=== PATIENT | female | born 1975 | race Caucasian/White ===

== ENCOUNTER 2020-08-07 08:01 | Day surgery (SDC) | payer OTHER ==
[2020-08-06 09:26] LABS: Absolute Lymphocytes (CBC) 3.7 K/uL (0.7-4.9); Basophils % 0.8 % (0-1.3); Hematocrit 38.2 % (36.0-45.0); Lymphocytes % 47.1 % (15.3-44.8); MPV 8.2 fL (7.6-11.3); RBC Red Blood Cell Count 4.66 M/uL (3.86-4.86)
--- NOTE | 2020-08-06 09:28 | RAD REPORT ---
EXAM DESCRIPTION: Gibson Pa And Lat (2 Views)08/06/2020 9:14 am CLINICAL HISTORY: Preop COMPARISON: None FINDINGS: 9 millimeter nodular opacity overlies the mid to lower left lung. The remainder of the lungs appear clear of acute infiltrate. The heart is normal size IMPRESSION: 9 millimeter nodular opacity overlies the mid to lower left lung may represent nipple sh adow or pulmonary nodule. Frontal and oblique views of chest with a left nipple marker are recommende d for further evaluation
[2020-08-06 09:39] LABS: Potassium 4.8 mmol/L (3.5-5.1)
[2020-08-06 13:51] LABS: Blood Morphology Comment NOT SEEN (NOT SEEN); Platelet Estimate ADEQ
[2020-08-07] MEDS ORDERED: Ringers Lactate 1,000 ML IV ONE (08:34)
[2020-08-07] MEDS: CEFOXITIN/SWI 1gm 1 GM/10 ML SYR ONE ×2 (08:57→08:58)
[2020-08-07] MEDS ORDERED: dexAMETHasone 10 MG/ML VIAL ONE (09:28)
[2020-08-07] MEDS ORDERED: FENTANYL CITR 100 MCG/2 ML ONE (09:28)
[2020-08-07] MEDS ORDERED: KETOROLAC 30 MG/ML INJ ONE (09:28)
[2020-08-07] MEDS ORDERED: propofoL 200 MG/20 ML VIAL IV ONE (09:28)
[2020-08-07] MEDS ORDERED: LIDOCAINE 2% MPF 5 ML VIAL ONE (09:28)
[2020-08-07] MEDS ORDERED: MIDAZOLAM HCL 2 MG/2 ML INJ ONE (09:28)
[2020-08-07] MEDS ORDERED: KETAMINE HCL 500 MG/5 ML VIAL ONE (09:28)
[2020-08-07] MEDS ORDERED: ONDANSETRON 4 MG/2 ML VIAL ONE (09:48)
[2020-08-07 10:23] VITALS: BP 107/69; O2SAT 99
[2020-08-07 11:14] VITALS: TEMP 97.2
--- NOTE | 2020-08-07 11:41 | OP ---
Date of Procedure: 08/07/2020 Surgeon: Reinier Yanes MD Overhead Irrigator: None. Preoperative Diagnosis: Anal mass. Postoperative Diagnosis: Anal mass. Procedures: Exam under anesthesia, rigid proctoscopy, and transanal excision of the anal mass. Estimated Blood Loss: Minimal. Specimen: Anal mass. 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 Anesthesia: General. Complications: None. Disposition: The patient tolerated the procedure in stable condition and taken to Recovery in good g eneral condition. Procedure In Detail: The patient was brought to the OR and placed in supine position. General anest hesia begun. The patient was prepped and draped in the lithotomy position. Exam under anesthesia an d rigid proctoscopy revealed a 1 cm raised mass the mucosa of the anus near the dentate li ne on the left side approximately 3 o'clock. This was grasped and excised through the mucosa from th e negative margins and sent to Pathology. There was no bleeding noted. The area was injected with M arcaine 0.5% in the rectal pack consisting of Gelfoam, Surgicel and Vaseline gauze was placed. Steri le dressing was applied. The patient was awakened and taken to Recovery in good general condition. Discharge Note: The patient will go to Day Surgery and home when stable. Disposition: Home. Condition: Stable. Discharge Instructions: Resume home medications and diet. Activity as tolerated. No heavy lifting. Sitz baths b.i.d. Procto-HC 2.5% to anus b.i.d. Followup in my office in 2 weeks. Call for appoi ntment. Tylenol No.3 one tablet p.o. q.4 p.r.n. pain. /MODL Voice ID: [id number] Report ID: [id number]
--- NOTE | 2020-08-07 16:32 | EKG ---
Test Date: 2020-08-06 Test Time: 07:57:23 Cleaning Crew Member: DANIEL MEASUREMENT RESULTS: Intervals: Rate: 56 CO: 144 QRSD: 88 QT: 422 QTc: 407 Morrow: P: 38 CO: 144 QRS: 76 T: 64 INTERPRETIVE STATEMENTS: Sinus bradycardia Otherwise normal ECG Compared to ECG 09/12/2002 01:26:00 Sinus rhythm no longer present Electronically Signed On 08-07-20 16:29:59 CDT by Lucas Gonzalez
== END 2020-08-07 11:08 | disposition home or self-care (01) ==
LOC: OR 08:01
PROVIDERS: ATTEND Surgery
PROC: 0D5P8ZZ Destruction of Rectum, Via Natural or Artificial Opening Endoscopic (ICD-10-PCS; principal; 2020-08-07 09:00)
DX: A63.0 Anogenital (venereal) warts (principal); Z20.822 Contact with and (suspected) exposure to COVID-19
CPT/HCPCS: 45320; 93005; 85025; 80048; 36415; 88305; 71046; U0003; J2704; J2250; J3010; J1100; J7120; J2405

== ENCOUNTER 2021-03-26 17:31 | Emergency (ER) | payer OTHER ==
--- OUTSIDE RECORDS SUMMARY | 2021-03-26 17:34 | XMS REPORT | Continuity of Care Document ---
:1975 Author Organization [facility] t Address [address] [place] [address] Care Team Providers Name Role Phone Samanthaolinda Attending Clinician Unavailable RADIOLOGY Attending Clinician Unavailable Florencia Sanchez Attending Clinician Sharla Vicente DO Attending Clinician Lab, Fam Pob I Attending Clinician Unavailable Maura LEDESMA Attending Clinician MAURA Attending Clinician Unavailable Payers Payer Name Policy Type Policy Number Effective Date Expiration Date S ourkey [employer] CHOICE POS [id number] 2018 00:00:00 II Problems Condition Condition Condition Status Onset Resolution Last Treating Co mments Source Name Details Category Date Date Treatment Clinician Date No known No known Disease Unive rs active active ity of problems problems [facility] Allergies, Adverse Reactions, Alerts Allergy Allergy Status Severity Reaction(s) Onset Inactive Treating Comm ents Source Name Type Date Date Clinician NO KNOWN Drug Active Univers ALLERGIE Class ity of [facility] Social History Social Habit Start Date Stop Date Quantity Comments Source Sex Assigned At Uni [facility] Exposure to SARS-CoV-[address] [facility] Smoking Status Start Date Stop Date Source Unknown if ever smoked Universit y [facility] Medications Ordered Filled Start Stop Current Ordering Indication Dosage Frequency Signature Comments Components Source Medication Medication Date Date Medication? Clinician (SIG) Name Name diphenhydrA 2020- No 25mg 25 mg, Uni vers MINE 02-21 Slow IV ity of (BENADRYL) 21:30: 20:25 Push, [place] injection 00 :00 ONCE, 1 Medical 25 mg dose, [place] [facility] 02/22/20 at 1530, STAT iohexol 2020- No 120mL 120 mL, Unive rs (OMNIPAQUE 02-21 Intravenou it y of 350 20:15: 20:30 s, ONCE, 1 [place] BULK-150 00 :00 dose, [facility] Med[facility] l mL) 02/22/20 at Branch injection 1430, 120 mL Routine methylpredn 2020- No 125mg 125 mg, U nivers isolone sod 02-21 Slow IV ity of succ 19:30: 19:00 Push, [place] (SOLU-MEDRO 00 :00 ONCE, 1 Medic al L) dose, [place] [facility] injection 02/22/20 at 125 mg 1330, STAT NaCl 0.9% 2020- No 1000mL at 999 Uni vers (NS) bolus 02-21 mL/hr, ity of infusion 19:30: 20:00 1,000 mL, [place] 1,000 mL 00 :00 IV Medical Infusion, Branch ONCE, 1 dose, [facility] 02/22/20 at 1330, STAT famotidine 2020- No 20mg 20 mg, IV U nivers 20 mg in NS 02-21 Piggyback, i ty of 50 ml 19:30: 19:31 ONCE, 1 [place] (PEPCID) 20 00 :00 dose, [facility] Med ical mg/50 mL 02/22/20 at Branch Piggyback 1330, 50 20 mg mL diphenhydrA 2020- No 25mg 25 mg, Uni vers MINE 02-21 Slow IV ity of (BENADRYL) 19:30: 19:02 Push, [place] injection 00 :00 ONCE, 1 Medical 25 mg dose, [place] [facility] 02/22/20 at 1330, STAT famotidine 0 Yes [id number] 40mg Take 1 Univers (PEPCID) 40 02-21 tablet by ity of mg tablet 00:00: mouth [place] 00 daily. Medical Branch ibuprofen Yes [id number] 600mg Take 1 U nivers 600 mg - tablet by ity of tablet 00:00: mouth [place] 00 every 6 Medical (six) Branch hours as needed for Pain (scale 4-6). methylPREDN Yes [id number] Take by Univers ISolone 1-07 mouth ity of (MEDROL, 00:00: SEE-INSTRU [place] as LATOSHA,) 4 mg 00 CTIONS. Medica l tablets follow [facility] package directions ondansetron Yes [id number] 4mg Take 1 Univers (ZOFRAN 1-07 tablet by ity of ODT) 4 mg 00:00: mouth [place] disintegrat 00 every 8 Medic al ing tablet (eight) Branch hours as needed for Nausea and Vomiting (N/V). dicyclomine No 10mg 10 mg, Uni vers (BENTYL) 02-17 Oral, ity of capsule 10 03:00: 02:08 ONCE, 1 [place] mg 00 :00 dose, Sat Medical 02/17/20 at Branch 2100, Routine NaCl 0.9% No 1000mL at 999 Uni vers (NS) bolus 02-1703 mL/hr, ity of infusion 01:30: 03:30 1,000 mL, [place] 1,000 mL 00 :00 IV Medical Infusion, [facility] ONCE, 1 dose, 02/17/20 at 1930, SURYA dicyclomine Yes [id number] 10mg Take 1 Univers (BENTYL) 10 1-02 capsule by it y of mg capsule 00:00: mouth [place] 00 every 6 Medical (six) Branch hours as needed for Abdominal pain. dicyclomine Yes [id number] 10mg Take 1 Univers (BENTYL) 10 1-02 capsule by it y of mg capsule 00:00: mouth [place] 00 every 6 Medical (six) Branch hours as needed for Abdominal pain. Vital Signs Vital Name Observation Time Observation Value Comments Source Systolic blood 2020-02-22 22:00:00 103 mm[Hg] Univer sity of pressure [facility] Diastolic blood 2020-02-22 22:00:00 76 mm[facility]Hg[facility] Heart rate 2020-02-22 22:00:00 86 /min [facility] Respiratory rate 2020-02-22 22:00:00 20 /min [facility] saturation in 2020-02-22 22:00:00 97 /min [facility] Arterial blood by [facility] Pulse oximetry [facility] Body temperature 2020-02-22 17:21:00 37.44 Saida [facility] Body weight 2020-02-22 17:21:00 61.236 kg [facility] BMI 2020-02-22 17:21:00 21.14 kg/m2 [facility] Systolic blood 2020-02-18 03:30:00 101 mm[Hg] Univer sity of pressure [facility] Diastolic blood 2020-02-18 03:30:00 76 mm[facility]Hg[facility] 2020-02-18 03:30:00 75 /min [facility] Respiratory rate 2020-02-18 03:30:00 16 /min [facility] Oxygen saturation in 2020-02-18 03:30:00 99 /min [facility] Arterial blood by [facility] Pulse oximetry [facility] Body temperature 2020-02-18 01:21:00 37.17 Saida [facility] Body height 2020-02-18 01:21:00 170.2 cm [facility] Body weight 2020-02-18 01:21:00 61.236 kg [facility] BMI 2020-02-18 01:21:00 21.14 kg/m2 [facility] Procedures Procedure Date / Time Performed Performing Clinician Jaja e CT ABDOMEN PELVIS W 2020-02-22 20:14:48 Gokul Zuluaga [facility] CONTRAST [facility] LIPASE 2020-02-22 18:54:00 Gokul Zuluaga [facility] MAGNESIUM 2020-02-22 18:54:00 Gokul Zuluaga [facility] COMP. METABOLIC PANEL 2020-02-22 18:54:00 Gokul Zuluaga [facility] ([id number]) [facility] CBC WITH DIFF 2020-02-22 18:54:00 Gokul Zuluaga [facility] NOTICE OF PRIVACY 2020-02-22 17:02:41 Doctor Unassigned, No [facility] Name Medical Branch CONSENT/REFUSAL FOR 2020-02-22 17:02:25 Doctor Unassigned, No [facility] DIAGNOSIS AND Name Medical Branch TREATMENT LIPASE 2020-02-18 02:05:00 Shiela Vicente [facility] HEPATIC FUNCTION PANEL 2020-02-18 02:05:[address] [facility] ([id number] Medical [facility] (ALB,T.PRO,BILI T,BU/BC,ALT,AST,ALK PHOS) BASIC METABOLIC PANEL 2020-02-18 02:05:00 Shiela Vicente Uni versity of [place] (NA, K, CL, CO2, Medical Branch GLUCOSE, BUN, CREATININE, CA) CBC WITH DIFF 2020-02-18 02:05:00 Shiela Vicente [facility] URINALYSIS 2020-02-18 02:05:00 Shiela Vicente [facility] NOTICE OF PRIVACY 2020-02-18 01:11:14 Doctor Unassigned, No Univ [facility] PRACTICES Name [facility] CONSENT/REFUSAL FOR 2020-02-18 01:10:52 Doctor Unassigned, No [facility] DIAGNOSIS AND Name Medical Branch TREATMENT Encounters Start End Encounter Admission Attending Care Care Encounter Source Date/Time Date/Time Type Type Clinicians Facility Department ID 2020-12-14 Emergency [facility] [id number] Univers 15:42:18 ity [facility] [place] [facility] 2020-12-14 Emergency [facility] [id number] Univers [facility] 2020-02-27 2020-02-27 Outpatient R RADIOLOGY [facility] [id number] Univers 09:00:00 09:00:00 [id number] ity [facility] [place] [facility] 2020-02-27 2020-02-27 Outpatient R RADIOLOGY [facility] [id number] Univers 00:00:00 00:00:00 ity [facility] [place] [facility] 2020-02-22 2020-02-22 Emergency Gokul Zuluaga [facility] [id number] Univers 11:28:00 16:24:00 Florencia Delgado [id number] i ty of [place] [id number] [facility] [id number] [facility] 084 Branch 2020-02-17 2020-02-17 Emergency [facility] [id number] Univers 19:35:00 21:37:00 Shiela Delgado [id number] [facility] [id number] [id number] [facility] 084 Branch 2020-02-17 2020-02-17 Laboratory Lab, Adc Fam Pob I [facility] 1.2. [id number] Univers 18:51:30 19:11:30 Only Yin Faith [facility] [id number] [facility] [place] [id number] [place] [facility] [phone] Vt dical nal [address] Branch [address] 2020-02-17 2020-02-17 Outpatient R MAURA [facility] [id number] Univers 19:00:00 19:00:00 [facility] Results Test Test Test Results Result Source Description Time Comments Comments MRI ABDOMEN 2020-06 WO/W -15 11:56:[facility] : 1975 Sex: F *CLINICAL INDICATION: R19.4Change in bowel gcqnpL66.4Abnormal weight lossR10.84Generalized abdominal pain MODALITY: ConsortiEX 3T MRITECHNIQUE: Parallel imaging is accomplished using T2, diffusion, in-phase, dop-fu-vpdvj, and breath-holding sequences. IV contrast (Dotarem), 14.0 ml is administered. Dynamic post-contrast fat saturation breath-hold imaging is then performed. The patient returned on 07/05/2020 for additional dynamic images (difficult to stick).IMPRESSION:Unremarkable MR enterography study. Specifically no evidence of active inflammatory bowel disease.Hysterectomy.FINDINGS: COMPARISON: noneLung bases are clear. No pleural fluid is seen.The liver appears homogeneous. Vertical diameter measures 14.0 cm. No masses or evidence of biliary dilatation. Gallbladder appears unremarkable. Spleen is normal in size and contour. The stomach appears unremarkable.Pancreas is morphologically normal. No mass, pancreatic duct dilatation or peripancreatic edema is visible.Adrenal glands and kidneys are morphologically normal. No cystic or solid mass lesions. No hydronephrosis. Neither retrocrural nor retroperitoneal lymph nodes are seen. No retroperitoneal mass is present. No vascular abnormalities are noted.Abdominal wall is intact. No evidence of ascites.No evidence of bowel mass, mural thickening or pericolic edema. Small bowel is normal in caliber. The terminal ileum appears unremarkable.Osseous structures are not remarkable. Modic reactive changes are demonstrated at the L4-5 the disc level.Dynamic contrast enhanced images demonstrate no suspicious enhancement to be present.Nonspecific reactive inguinal lymph nodes are noted bilaterally.The uterus is surgically absent. No adnexal pathology is demonstrated. No pelvic or inguinal lymph nodes. No mural or intraluminal bladder mass. CT ABDOMEN 2020-02 CT Abdomen and Pelvis with [place] PELVIS W -07 intravenous contrast. [facility] CONTRAST 20:23:1 HISTORY: Abdominal infection Medical 8 including peritonitis. DOSE: Branch Up-to-date CT equipment and radiation dose reduction techniques wereemployed. CTDIvol: 7.02 mGy. DLP: 318 mGy-cm. TECHNIQUE : Contiguous axial imaging from the level of the lung basesthrough the pubic symphysis were performed after the uncomplicatedadministration of Omnipaque contrast material. Coronal and sagittalreconstructions were obtained. Auto mA and/or iterative reconstruction wereused to reduce radiation dose. FINDINGS: ? Lower lungs: Minimal congestion/atelectatic changes in the lower lungs. Nofocal consolidation. No pleural effusion or pericardial effusion. Probableshort sliding hiatal hernia. Liver, Gallbladder and Spleen: Liver measures 14.5 cm and spleen isapproximately 10 x 4.2 cm. No focal lesions visualized in the liver or inthe spleen. No calcified gallstones. Biliary ducts and the pancreatic ductappear of normal size. Peritoneum: ?No free air. Minimal free fluid in the pelvis is of uncertainetiology. 1 cm or smaller size lymph nodes are seen in the right lowerabdomen.. Pancreas and Adrenals: ?Unremarkable pancreas and adrenal glands. Kidneys and Ureters: ?No visible calculi in the renal collecting systems. No hydroureter or hydronephrosis. 4 mm cystic lesion noted in the lateralcortex in the interpolar region of left kidney. Vessels: Normal. Retroperitoneum: No abnormal fluid. Subcentimeter lymph nodes are seensurrounding the aorta. No enlarged retroperitoneal lymph nodes detected. Bowel: 9 mm appendicolith noted in the cecum near the base of the appendix,however, I do not see any CT evidence of acute appendicitis. Constipation. Bladder and Reproductive Organs: S/P hysterectomy. No gross pathology inthe unopacified and under distended urinary bladder. Bones: Moderate degenerative disc disease at L4-L5, less severe at L2-L3.No aggressive bone lesions. Bone island noted in the head of the leftfemur. No signs of AVN in the femoral heads. Soft tissues: Very small fat-containing umbilical hernia. CONCLUSION: Mesenteric adenitis is noted in the right lower quadrant of theabdomen. No other acute intra-abdominal or pelvic abnormality detected. [facility], Radiant Results Inft User - 02/22/2020 2:24 PM CSTCT Abdomen and Pelvis with intravenous contrast.CLINICAL HISTORY: Abdominal infection including peritonitis.DOSE: Up-to-date CT equipment and radiation dose reduction techniques wereemployed. CTDIvol: 7.02 mGy. DLP: 318 mGy-cm.TECHNIQUE : Contiguous axial imaging from the level of the lung basesthrough the pubic symphysis were performed after the uncomplicatedadministration of Omnipaque contrast material. Coronal and sagittalreconstructions were obtained. Auto mA and/or iterative reconstruction wereused to reduce radiation dose.FINDINGS: Lower lungs: Minimal congestion/atelectatic changes in the lower lungs. Nofocal consolidation. No pleural effusion or pericardial effusion. Probableshort sliding hiatal hernia.Liver, Gallbladder and Spleen: Liver measures 14.5 cm and spleen isapproximately 10 x 4.2 cm. No focal lesions visualized in the liver or inthe spleen. No calcified gallstones. Biliary ducts and the pancreatic ductappear of normal size.Peritoneum: No free air. Minimal free fluid in the pelvis is of uncertainetiology. 1 cm or smaller size lymph nodes are seen in the right lowerabdomen..Pancreas and Adrenals: Unremarkable pancreas and adrenal glands.Kidneys and Ureters: No visible calculi in the renal collecting systems. No hydroureter or hydronephrosis. 4 mm cystic lesion noted in the lateralcortex in the interpolar region of left kidney. Vessels: Normal.Retroperitoneum: No abnormal fluid. Subcentimeter lymph nodes are seensurrounding the aorta. No enlarged retroperitoneal lymph nodes detected.Bowel: 9 mm appendicolith noted in the cecum near the base of the appendix,however, I do not see any CT evidence of acute appendicitis. Constipation.Bladder and Reproductive Organs: S/P hysterectomy. No gross pathology inthe unopacified and under distended urinary bladder.Bones: Moderate degenerative disc disease at L4-L5, less severe at L2-L3.No aggressive bone lesions. Bone island noted in the head of the leftfemur. No signs of AVN in the femoral heads.Soft tissues: Very small fat-containing umbilical hernia.CONCLUSION: Mesenteric adenitis is noted in the right lower quadrant of theabdomen. No other acute intra-abdominal or pelvic abnormality detected. CBC WITH DIFF 2020-02-22 20:23:00 Test Item Value Reference Range Interpretation Comme nts WBC (test code = 6690-2) See_Comment H [A utomated message] The system which [employer] nerated this result transmit candelario reference range: 4.30 - 1 1.10 10*3/?L. The reference r deidre was not used to interpr et this result as normal/abnor mal. RBC (test code = 789-8) See_Comment [Au tomated message] The system which [employer] nerated this result transmit candelario reference range: 3.93 - 5 .25 10*6/?L. The reference r deidre was not used to interpr et this result as normal/abnor mal. HGB (test code = 718-7) 14.4 g/dL 11.6-15 HCT (test code = 4544-3) 44.0 % 35.7-45.2 MCV (test code = 787-2) 85.9 fL 80.6-95.5 MCH (test code = 785-6) 28.1 pg 25.9-32.8 MCHC (test code = 786-4) 32.7 g/dL 31.6-35.1 RDW-SD (test code = 50487-8) 39.2 fL 39-49.9 RDW-CV (test code = 788-0) 12.4 % 12-15.5 PLT (test code = 777-3) See_Comment H [Au tomated message] The system which ge nerated this result transmit candelario reference range: 166 - 35 8 10*3/?L. The reference range was not used to interpret th is result as normal/abnormal . MPV (test code = 53168-0) 9.5 fL 9.5-12.9 NRBC/100 WBC (test code = See_Comment [ Automated message] The 0401979055) system which ge nerated this result transmit candelario reference range: 0.0 - 10 .0 /100 WBCs. The reference r deidre was not used to interpr et this result as normal/abnor mal. NRBC x10^3 (test code = <0.01 See_Comment [Au tomated message] The 4754947138) system which ge nerated this result transmit candelario reference range: 10*3/?L. The reference range was not u sed to interpret this result as normal/abnormal . GRAN MAT (NEUT) % (test code 67.1 % = 770-8) IMM GRAN % (test code = 6.30 % 2437965268) LYMPH % (test code = 736-9) 20.6 % MONO % (test code = 5905-5) 4.5 % EOS % (test code = 713-8) 0.6 % BASO % (test code = 706-2) 0.9 % GRAN MAT x10^3(ANC) (test 12.57 10*3/uL 1.88-7.09 H code = 6574766531) IMM GRAN x10^3 (test code = 1.19 10*3/uL 0-0.06 H 4956418947) LYMPH x10^3 (test code = 3.87 10*3/uL 1.32-3.29 H 731-0) MONO x10^3 (test code = 0.85 10*3/uL 0.33-0.92 742-7) EOS x10^3 (test code = 0.11 10*3/uL 0.03-0.39 711-2) BASO x10^3 (test code = 0.16 10*3/uL 0.01-0.07 H 704-7) Lab Interpretation (test Abnormal code = 43712-8) [facility] 19:33:00 Test Item Value Reference Range Interpretation Comments MAGNESIUM (test code = 9320347107) 1.9 mg/dL 1.7-2.4 Lab Interpretation (test code = Normal 58840-5) [facility]OL[facility] (37887)2020-02-22 19:33:00 Test Item Value Reference Range Interpretation Comments NA (test code = 137 mmol/L 135-145 8285644714) K (test code = 4.2 mmol/L 3.5-5 5846980387) CL (test code = 102 mmol/L 98-108 6350525303) CO2 TOTAL (test code = 27 mmol/L 23-31 4596242767) AGAP (test code = 2-16 1712637823) BUN (test code = 9 mg/dL 7-23 8149605129) GLUCOSE (test code = 106 mg/dL 70-110 9817758400) CREATININE (test code 0.70 mg/dL 0.5-1.04 = 7804317611) TOTAL BILI (test code 0.4 mg/dL 0.1-1.1 = 8932780129) CALCIUM (test code = 8.8 mg/dL 8.6-10.6 8008183943) T PROTEIN (test code = 6.6 g/dL 6.3-8.2 4796733522) ALBUMIN (test code = 3.5 g/dL 3.5-5 1772425880) ALK PHOS (test code = 108 U/L 34-122 2600496727) ALTv (test code = 24 U/L 5-35 1742-6) AST(SGOT) (test code = 33 U/L 13-40 0817957579) eGFR Calculation mL/min/1.73m2 (Non-) (test code = 6387804810) eGFR Calculation mL/min/1.73m2 () (test code = 4759397029) MADELIN (test code = MADELIN) Association of Glomerular Filtration Rate (GFR) and Staging of Kidney Disease* + -+ + ---+| GFR (mL/min/1.73 m2) ?| With Kidney Damage ?| ?Without Kidney Damage+ -------+ ------+ ---------+| ?>90 ?| ?Stage one ?| ? Normal ?+ --+ -+ ----+| ?60-89 ?| ?Stage two ?| ? Decreased GFR ? + -+ + ---+| ?30-59 ?| ?Stage three ?| ? Stage three ? + -+ + ---+| ?15-29 ?| ?Stage four ? | ? Stage four ?+ --+ -+ ----+| ?<15 (or dialysis) ? ?| ?Stage five ? | ? Stage five ?+ --+ -+ ----+ *Each stage assumes the associated GFR level has been in effect for at least three months. ?Stages 1 to 5, with or without kidney disease, indicate chronic kidney disease. Notes: Determination of stages one and two (with eGFR >59mL/min/1.73 m2) requires estimation of kidney damage for at least three months as defined by structural or functional abnormalities of the kidney, manifested by either:Pathological abnormalities or Markers of kidney damage (including abnormalities in the composition of the blood or urine or abnormalities in imaging tests). [facility] 19:32:00 Test Item Value Reference Range Interpretation Comments LIPASE (test code = 4168442381) 90 U/L 0-220 Lab Interpretation (test code = Normal 55519-7) [facility] [place] [facility] Hospital[facility] Metabolic Panel (NA, K, CL, CO2, GLUCOSE, BUN, CREATININE, CA)2020-02-18 02:53:00 Test Item Value Reference Range Interpretation Comments NA (test code = 139 mmol/L 135-145 5786204566) K (test code = 3.6 mmol/L 3.5-5 7969282498) CL (test code = 100 mmol/L 98-108 7480356327) CO2 TOTAL (test code = 31 mmol/L 23-31 7410359249) AGAP (test code = 2-16 2385809240) BUN (test code = 18 mg/dL 7-23 0123317919) GLUCOSE (test code = 103 mg/dL 70-110 4516879213) CREATININE (test code 0.75 mg/dL 0.5-1.04 = 5225951454) CALCIUM (test code = 9.9 mg/dL 8.6-10.6 5180478330) eGFR Calculation mL/min/1.73m2 (Non-) (test code = 8969117943) eGFR Calculation mL/min/1.73m2 () (test code = 7629751863) MADELIN (test code = MADELIN) Association of Glomerular Filtration Rate (GFR) and Staging of Kidney Disease* + -+ + ---+| GFR (mL/min/1.73 m2) ?| With Kidney Damage ?| ?Without Kidney Damage+ -------+ ------+ ---------+| ?>90 ?| ?Stage one ?| ? Normal ?+ --+ -+ ----+| ?60-89 ?| ?Stage two ?| ? Decreased GFR ? + -+ + ---+| ?30-59 ?| ?Stage three ?| ? Stage three ? + -+ + ---+| ?15-29 ?| ?Stage four ? | ? Stage four ?+ --+ -+ ----+| ?<15 (or dialysis) ? ?| ?Stage five ? | ? Stage five ?+ --+ -+ ----+ *Each stage assumes the associated GFR level has been in effect for at least three months. ?Stages 1 to 5, with or without kidney disease, indicate chronic kidney disease. Notes: Determination of stages one and two (with eGFR >59mL/min/1.73 m2) requires estimation of kidney damage for at least three months as defined by structural or functional abnormalities of the kidney, manifested by either:Pathological abnormalities or Markers of kidney damage (including abnormalities in the composition of the blood or urine or abnormalities in imaging tests). [facility] [place] [facility] Panel (ALB, T.PRO, BILI T, BU/BC, ALT, AST, ALK PHOS)2020-02-18 02:53:00 Test Item Value Reference Range Interpretation Comments TOTAL BILI (test code = 0841387845) 0.5 mg/dL 0.1-1.1 BILI UNCON (test code = 4345457653) 0.3 mg/dL 0.1-1.1 BILI CONJ (test code = 1315028542) 0.0 mg/dL 0-0.3 T PROTEIN (test code = 9867939646) 6.6 g/dL 6.3-8.2 ALBUMIN (test code = 6681242936) 3.6 g/dL 3.5-5 ALK PHOS (test code = 8683444912) 116 U/L 34-122 ALTv (test code = 1742-6) 21 U/L 5-35 AST(SGOT) (test code = 8040122089) 25 U/L 13-40 Lab Interpretation (test code = Normal 10390-0) [facility] HospitalLipase [id number] 02:53:00 Test Item Value Reference Range Interpretation Comments LIPASE (test code = 3288668036) 23 U/L 0-220 Lab Interpretation (test code = Normal 18102-3) [facility] [place] [facility] HospitalUrinalysis2021-01-03 02:47:00 Test Item Value Reference Range Interpretation Comments APPEARANCE (test code = Hazy Clear A 9438778584) COLOR (test code = Nickie Yellow A 3990048174) PH (test code = 4.8-8.0 7704241752) SP GRAVITY (test code = 1.003-1.030 H 4865267517) GLU U QUAL (test code = Normal Normal 1588370610) BLOOD (test code = Negative Negative 2942001177) KETONES (test code = 5 mg/dL Negative A 0770569182) PROTEIN (test code = 100 mg/dL Negative A 2887-8) UROBILIN (test code = 2.0 mg/dL Normal A 8920714504) BILIRUBIN (test code = 2 mg/dL Negative A [id number]) NITRITE (test code = Negative Negative 7025390674) LEUK CONY (test code = Negative Negative 8023345495) RBC/HPF (test code = See_Comment H [Autom ated message] 6253802282) The system [employer] generated this result transmit candelario reference range : 0 - 3 HPF. The refe rence range was not u sed to interpret th is result as normal/abnormal . WBC/HPF (test code = See_Comment H [Autom ated message] 3646256260) The system [employer] generated this result transmit candelario reference range : 0 - 5 HPF. The refe rence range was not u sed to interpret th is result as normal/abnormal . BACTERIA (test code = Few Negative A 3654379134) MUCOUS (test code = Moderate Negative LPF A 3517688793) SQ EPITH (test code = HPF 4698702847) Lab Interpretation (test Abnormal code = 20764-7) [facility] with [id number] 02:34:00 Test Item Value Reference Range Interpretation Comments WBC (test code = See_Comment H [Automated 8190-2) message] The sy stem which generated this result transmitted reference range : 4.30 - 11.10 10*3/?L. The reference range was not used to interpret this result as normal/abnormal . RBC (test code = See_Comment [Automated 789-8) message] The sy stem which generated this result transmitted reference range : 3.93 - 5.25 10*6/?L. The reference range was not used to interpret this result as normal/abnormal . HGB (test code = 12.4 g/dL 11.6-15 718-7) HCT (test code = 39.0 % 35.7-45.2 4544-3) MCV (test code = 89.9 fL 80.6-95.5 787-2) MCH (test code = 28.6 pg 25.9-32.8 785-6) MCHC (test code = 31.8 g/dL 31.6-35.1 786-4) RDW-SD (test code = 41.1 fL 39-49.9 32973-8) RDW-CV (test code = 12.5 % 12-15.5 788-0) PLT (test code = See_Comment [Automated 777-3) message] The sy stem which generated this result transmitted reference range : 166 - 358 10*3/ ?L. The reference r deidre was not used to interpret this result as normal/abnormal . MPV (test code = 10.7 fL 9.5-12.9 57206-4) NRBC/100 WBC (test See_Comment [Automat ed code = 9862828569) message] The system which generated this result transmitted reference range : 0.0 - 10.0 /100 WBCs. The refer ence range was not u sed to interpret th is result as normal/abnormal . NRBC x10^3 (test code <0.01 See_Comment [Auto mated = [id number]) message] The s ystem which generated this result transmitted reference range : 10*3/?L. The reference range was not used to interpret this result as normal/abnormal . GRAN MAT (NEUT) % 62.4 % (test code = 770-8) IMM GRAN % (test code 1.00 % = 0683785824) LYMPH % (test code = 19.7 % 736-9) MONO % (test code = 12.4 % 5905-5) EOS % (test code = 3.8 % 713-8) BASO % (test code = 0.7 % 706-2) GRAN MAT x10^3(ANC) 7.12 10*3/uL 1.88-7.09 H (test code = 0378542233) IMM GRAN x10^3 (test 0.12 10*3/uL 0-0.06 H code = 0040295042) LYMPH x10^3 (test code 2.25 10*3/uL 1.32-3.29 = 731-0) MONO x10^3 (test code 1.42 10*3/uL 0.33-0.92 H = 742-7) EOS x10^3 (test code = 0.44 10*3/uL 0.03-0.39 H 711-2) BASO x10^3 (test code 0.08 10*3/uL 0.01-0.07 H = 704-7) Lab Interpretation Abnormal (test code = 25257-2) [facility]"
[2021-03-26] MEDS ORDERED: MORPHINE 4 MG/ML SYR ONE (17:47)
[2021-03-26] MEDS ORDERED: ONDANSETRON 4 MG/2 ML VIAL ONE (17:47)
--- NOTE | 2021-03-26 18:19 | RAD REPORT ---
EXAM DESCRIPTION: CTStone Protocol - 03/26/2021 6:09 pm CLINICAL HISTORY: fall, low back pain COMPARISON: CT-STONE PROTOCOL dated 12/04/2006 TECHNIQUE: CT of the abdomen and pelvis was performed. All CT scans are performed using dose optimization technique as appropriate and may include automated exposure control or mA/KV adjustment according to patient size. FINDINGS: Lower chest: Emphysema. Liver: No acute abnormality or suspicious lesions. Biliary: No biliary ductal dilatation. Stomach: No significant focal abnormality. Duodenum: No significant focal abnormality. Pancreas: No significant abnormality. Spleen: No significant abnormality. Adrenal: No suspicious lesions. Kidney/ureter: No hydronephrosis. No renal calculi. Retroperitoneum: No retroperitoneal adenopathy. Vascular: No aneurysm. Bowel: No significant focal abnormality. Normal appendix. Moderate stool in the colon. Peritoneum: No ascites or free air. Bladder: Grossly unremarkable. Reproductive: No adnexal masses. Hysterectomy. Bones: No acute fracture. Multilevel degenerative changes are present in the spine. Other: n/a IMPRESSION: No acute intra-abdominal or pelvic finding.
--- NOTE | 2021-03-26 18:56 | RAD REPORT ---
EXAM DESCRIPTION: RAD - Elbow Left 3 View - 03/26/2021 6:23 pm CLINICAL HISTORY: fall, left elbow pain COMPARISON: No comparisons FINDINGS: No acute fracture. No malalignment. No significant focal degenerative changes. IMPRESSION: No acute osseous abnormality involving the left elbow.
[2021-03-26] MEDS ORDERED: KETOROLAC 30 MG/ML INJ ONE (19:48)
[2021-03-26] MEDS ORDERED: DIAZEPAM 10 MG/2 ML INJ SYRINGE ONE (19:50)
--- NOTE | 2021-03-26 20:12 | EDPHYS ---
Physician Documentation [facility] Name: Roberta Cowart Age: 45 yrs Sex: Female : 1975 Arrival Date: 03/26/2021 Time: 17:33 Bed 16 Private MD: ED Physician Jesus Vasquez HPI: 03/26 17:34 This 45 yrs old Female presents to ER via EMS with unknown complaint. jmm 17:34 Details of fall: The patient fell from an upright position, while walking. Onset: The [facility] symptoms/episode began/occurred acutely, just prior to arrival. Associated injuries: The patient sustained injury to the low back, pain. The patient has not experienced similar symptoms in the past. Patient states she slipped on the floor, landing on her buttock and left elbow. Denies head injury. . 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 - Social history:: Smoking status: Reported history of juuling and/or vaping. ROS: 18:05 Constitutional: Negative for fever, chills, and weight loss, Cardiovascular: Negative jmm for chest pain, palpitations, and edema, Respiratory: Negative for shortness of breath, cough, wheezing, and pleuritic chest pain. 18:05 MS/extremity: Positive for pain. 18:05 All other systems are negative. Exam: 18:05 Constitutional: This is a well developed, well nourished patient who is awake, alert, jmm and in no acute distress. Head/Face: atraumatic. Eyes: EOMI, no conjunctival erythema appreciated ENT: Moist Mucus Membranes Neck: Trachea midline, Supple Chest/axilla: Normal chest wall appearance and motion. Cardiovascular: Regular rate and rhythm. No edema appreciated Respiratory: Normal respirations, no respiratory distress appreciated Abdomen/GI: Non distended, soft 18:05 Skin: General appearance color normal 18:05 Back: pain, that is moderate, of the lumbar area and sacrum. 18:05 Musculoskeletal/extremity: FROM noted to the left elbow, painful rom, no obvious deformity, full radial pulse, compartments are soft, NVI. 18:05 Skin: Appearance: Color: normal in color. 18:05 Neuro: Orientation: is normal, Mentation: is normal, Memory: is normal. 18:05 Psych: Behavior/mood is pleasant, cooperative. Vital Signs: 17:33 BP 121 / 77; Pulse 60; Resp 18; Temp 97.9; Pulse Ox 98% on R/A; Weight 61.23 kg; Height ap3 5 ft. 7 in. (170.18 cm); 19:56 BP 104 / 71; Pulse 57; Resp 16; Pulse Ox 99% on R/A; naveen 20:40 BP 106 / 72; Pulse 58; Resp 16; Temp 98.5; Pulse Ox 100% on R/A; Pain 1/10; naveen 17:33 Body Mass Index 21.14 (61.23 kg, 170.18 cm) ap3 MDM: 17:34 Patient medically screened. [facility] 20:05 Data reviewed: vital signs, nurses notes. Counseling: I had a detailed discussion with [facility] the patient and/or guardian regarding: the historical points, exam findings, and any diagnostic results supporting the discharge/admit diagnosis, lab results, radiology results, the need for outpatient follow up. ED course: Imaging studies negative. Patient advised to follow up with pcp and otherwise given strict return precautions. Patient understood and agrees with the plan of care. . 02 17:34 Order name: CT Stone Protocol; Complete Time: 18:25 [facility] 03/26 17:35 Order name: Elbow Left 3 View XRAY; Complete Time: 18:57 [facility] 03/26 17:34 Order name: Saline Lock; Complete Time: 18:21 [facility] Administered Medications: 18:21 Drug: morphine 4 mg Route: IVP; Site: right hand; ap3 18:21 Drug: Zofran (Ondansetron) 4 mg Route: IVP; Site: right hand; ap3 19:53 Drug: Ketorolac 30 mg Route: IVP; Site: right hand; naveen 19:54 Follow up: Response: No adverse reaction naveen 19:53 Drug: Valium (diazepam) 2 mg Route: IVP; Site: right hand; naveen 19:54 Follow up: Response: No adverse reaction naveen Disposition: 03/27 08:28 Co-signature as Attending Physician, Jesus Vasquez MD I agree with the assessment and cesar plan of care. Disposition Summary: 03/26/21 20:11 Discharge Ordered Location: Home [facility] Condition: Stable [facility] Diagnosis - Low Back Sprain jmm - Contusion of elbow [facility] Followup: jmm - With: Private Physician - When: 2 - 3 days - Reason: Recheck today's complaints, Continuance of care, Re-evaluation by your physician Discharge Instructions: - Discharge Summary Sheet jm - Tailbone Injury jmm - Elbow Contusion [facility] Forms: - Medication Reconciliation Form [facility] - Thank You Letter [facility] - Antibiotic Education [facility] - Prescription Opioid Use [facility] Prescriptions: - Diclofenac Sodium 75 mg Oral Tablet Sustained Release - take 1 tablet by ORAL route 2 times per day; 30 tablet; Refills: 0, Product [facility] Selection Permitted - orphenadrine citrate 100 mg Oral Tablet Sustained Release - take 1 tablet by ORAL route 2 times per day As needed; 20 tablet; Refills: 0, [facility] Product Selection Permitted Signatures: Dispatcher [employer] EDJesus Arellano MD MD cha Mickail, Joel, PA PA jmm Prokisch, Amanda, RN RN ap3 Anushka Kumar RN RN naveen Corrections: (The following items were deleted from the chart) 03/26 18:06 17:34 Patient states she slipped from the . [facility]
--- NOTE | 2021-03-26 20:12 | ER ---
Nurse's Notes [facility] Name: Roberta Cowart Age: 45 yrs Sex: Female : 1975 Arrival Date: 03/26/2021 Time: 17:33 Bed 16 Private MD: Diagnosis: Low Back Sprain;Contusion of elbow Presentation: 03/26 17:33 Chief complaint: EMS states: patient fell in her home after tripping over her puppy. ap3 Patient reports hitting her tailbone. Denies hitting her head, no LOC, and no blood thinners are on board. Coronavirus screen: At this time, the client does not indicate any symptoms associated with coronavirus-19. Ebola Screen: No symptoms or risks identified at this time. Initial Sepsis Screen: Does the patient meet any 2 criteria? No. Patient's initial sepsis screen is negative. Does the patient have a suspected source of infection? No. Patient's initial sepsis screen is negative. Risk Assessment: Do you want to hurt yourself or someone else? Patient reports no desire to harm self or others. Onset of symptoms was March 26, 2021. Care prior to arrival: Medication(s) given: 60mcg fentanyl. 17:33 Method Of Arrival: EMS: [facility] ap3 17:33 Acuity: COLEMAN 3 ap3 Triage Assessment: 17:37 General: Appears in no apparent distress. uncomfortable, Behavior is calm, cooperative, ap3 appropriate for age. Pain: Complains of pain in low back area Pain currently is 7 out of 10 on a pain scale. Pain began suddenly. Neuro: Level of Consciousness is awake, alert, obeys commands, Oriented to person, place, time, situation, Appropriate for age Moves all extremities. Speech is normal. Cardiovascular: Patient's skin is warm and dry. Respiratory: Airway is patent Respiratory effort is even, unlabored, Respiratory pattern is regular, symmetrical. Injury Description: fall from standing. 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 - Social history:: Smoking status: Reported history of juuling and/or vaping. Screenin:38 Abuse screen: Denies threats or abuse. Nutritional screening: No deficits noted. ap3 Tuberculosis screening: No symptoms or risk factors identified. Fall Risk Fall in past 12 months (25 points). No secondary diagnosis (0 pts). No IV (0 pts). Ambulatory Aid- None/Bed Rest/Nurse Assist (0 pts). Gait- Weak (10 pts.). Mental Status- Oriented to own ability (0 pts). Total Vera Fall Scale indicates Low Risk Score (25-44 pts). Fall prevention measures have been instituted. Side Rails Up X 2 Placed close to Nursing Station Frequent Obs/Assesments occuring As available Patient and Family Educated on Fall Prevention Program and strategies. Assessment: 19:54 Reassessment: Patient appears in no apparent distress at this time. 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 . Pain: Complains of pain in buttocks. 19:55 General: The pt is anxious to be dc'd home. She has just recv'd medication and we are naveen awaiting a dc order. . Vital Signs: 17:33 BP 121 / 77; Pulse 60; Resp 18; Temp 97.9; Pulse Ox 98% on R/A; Weight 61.23 kg; Height ap3 5 ft. 7 in. (170.18 cm); 19:56 BP 104 / 71; Pulse 57; Resp 16; Pulse Ox 99% on R/A; naveen 20:40 BP 106 / 72; Pulse 58; Resp 16; Temp 98.5; Pulse Ox 100% on R/A; Pain 1/10; naveen 17:33 Body Mass Index 21.14 (61.23 kg, 170.18 cm) ap3 ED Course: 17:33 Patient arrived in ED. ap3 17:34 Mitch Morris PA is PHCP. jmm 17:34 Jesus Vasquez MD is Attending Physician. jmm 17:35 Triage completed. ap3 17:38 Arm band placed on left wrist. ap3 17:39 Patient has correct armband on for positive identification. Bed in low position. Call ap3 light in reach. Side rails up X2. Pulse ox on. NIBP on. Door closed. Noise minimized. 17:40 Mila Recinos, RN is Primary Nurse. ap3 18:04 Inserted saline lock: 22 gauge in right hand, using aseptic technique. ke1 18:09 CT Stone Protocol In Process Unspecified. EDMS 18:23 Elbow Left 3 View XRAY In Process Unspecified. EDMS 19:03 Primary Nurse role handed off by Mila Recinos, JANET mw2 19:22 Anushka Kumar, RN is Primary Nurse. naveen 19:57 No provider procedures requiring assistance completed. naveen 20:38 intact, bleeding controlled, No redness/swelling at site. Pressure dressing applied. naveen Administered Medications: 18:21 Drug: morphine 4 mg Route: IVP; Site: right hand; ap3 18:21 Drug: Zofran (Ondansetron) 4 mg Route: IVP; Site: right hand; ap3 19:53 Drug: Ketorolac 30 mg Route: IVP; Site: right hand; naveen 19:54 Follow up: Response: No adverse reaction naveen 19:53 Drug: Valium (diazepam) 2 mg Route: IVP; Site: right hand; naveen 19:54 Follow up: Response: No adverse reaction naveen Outcome: 20:11 Discharge ordered by MD. jmm 20:38 Condition: stable naveen 20:39 Discharged to home ambulatory, with family. naveen 20:39 Discharge instructions given to patient, Instructed on discharge instructions, follow naveen up and referral plans. no drinking with medication, medication usage, Demonstrated understanding of instructions, follow-up care, medications, Prescriptions given X 2. 20:41 Patient left the ED. naveen Signatures: Dispatcher [employer] EDKY Mitch Morris PA PA jmm Prokisch, Amanda, RN RN ap3 Jj Parish 2 Anushka Kumar RN RN bo Ebrottie, Kouassi, RN RN ke1 Corrections: (The following items were deleted from the chart) 18:06 18:04 Inserted saline lock: 20 gauge in right hand, using aseptic technique. ke1 ke1
[2021-03-26 20:56] VITALS: BP 106/72; TEMP 98.5; O2SAT 100
== END 2021-03-26 20:41 | disposition home or self-care (01) ==
LOC: ER 17:31
DX: S33.5XXA Sprain of ligaments of lumbar spine, initial encounter (principal); S50.02XA Contusion of left elbow, initial encounter; W18.30XA Fall on same level, unspecified, initial encounter; Y93.01 Activity, walking, marching and hiking; E03.9 Hypothyroidism, unspecified; Z88.8 Allergy status to other drugs, medicaments and biological substances
CPT/HCPCS: 76377; 74176; 73080; 96375; 96374; 99284; J3360; J2405